=== PATIENT | female | born 1960 | race Two or more races ===

== ENCOUNTER 2017-10-22 16:06 | Outpatient (CLI) | END 2017-10-22 16:07 | disposition home or self-care (01) | LOC: NONPT 16:06 | PROVIDERS: ATTEND Internal Medicine Infectious Disease | DX: A41.2 Sepsis due to unspecified staphylococcus (principal); E11.9 Type 2 diabetes mellitus without complications | CPT/HCPCS: 80053; 85025; 85651; 86140 ==

== ENCOUNTER 2017-10-29 11:44 | Outpatient (CLI) | END 2017-10-29 11:45 | disposition home or self-care (01) | LOC: NONPT 11:44 | PROVIDERS: ATTEND Internal Medicine Infectious Disease | DX: L02.414 Cutaneous abscess of left upper limb (principal); L02.413 Cutaneous abscess of right upper limb; A49.02 Methicillin resistant Staphylococcus aureus infection, unspecified site; E11.9 Type 2 diabetes mellitus without complications | CPT/HCPCS: 80053; 85025; 85651; 86140 ==

== ENCOUNTER 2017-11-05 11:50 | Outpatient (CLI) | END 2017-11-05 11:51 | disposition home or self-care (01) | LOC: NONPT 11:50 | PROVIDERS: ATTEND Internal Medicine Infectious Disease | DX: L02.91 Cutaneous abscess, unspecified (principal); A49.01 Methicillin susceptible Staphylococcus aureus infection, unspecified site; E11.9 Type 2 diabetes mellitus without complications | CPT/HCPCS: 80053; 85025; 85651; 86140 ==

== ENCOUNTER 2017-11-12 11:15 | Outpatient (CLI) | END 2017-11-12 11:16 | disposition home or self-care (01) | LOC: NONPT 11:15 | PROVIDERS: ATTEND Internal Medicine Infectious Disease | DX: L02.91 Cutaneous abscess, unspecified (principal); A49.01 Methicillin susceptible Staphylococcus aureus infection, unspecified site; E11.9 Type 2 diabetes mellitus without complications | CPT/HCPCS: 80053; 85025; 85651; 86140 ==

== ENCOUNTER 2017-11-26 13:09 | Outpatient (CLI) | END 2017-11-26 13:10 | disposition home or self-care (01) | LOC: NONPT 13:09 | PROVIDERS: ATTEND Internal Medicine Infectious Disease | DX: L02.91 Cutaneous abscess, unspecified (principal); A49.01 Methicillin susceptible Staphylococcus aureus infection, unspecified site; E11.9 Type 2 diabetes mellitus without complications | CPT/HCPCS: 85651; 86140 ==

== ENCOUNTER 2017-12-03 13:06 | Outpatient (CLI) | END 2017-12-03 13:07 | disposition home or self-care (01) | LOC: NONPT 13:06 | PROVIDERS: ATTEND Internal Medicine Infectious Disease | DX: L02.413 Cutaneous abscess of right upper limb (principal); L02.414 Cutaneous abscess of left upper limb; B95.61 Methicillin susceptible Staphylococcus aureus infection as the cause of diseases classified elsewhere; E11.621 Type 2 diabetes mellitus with foot ulcer | CPT/HCPCS: 85651; 86140 ==

== ENCOUNTER 2017-12-10 11:48 | Outpatient (CLI) | END 2017-12-10 11:49 | disposition home or self-care (01) | LOC: NONPT 11:48 | PROVIDERS: ATTEND Internal Medicine Infectious Disease | DX: L97.519 Non-pressure chronic ulcer of other part of right foot with unspecified severity (principal); E11.621 Type 2 diabetes mellitus with foot ulcer | CPT/HCPCS: 85651; 86140 ==

== ENCOUNTER 2017-12-13 13:00 | Outpatient (RCR) ==
--- NOTE | 2017-11-29 08:25 | RS.OPPTEV2 ---
Date of Note: 11/27/17 Visit #: 1 Date of Evaluation: 11/27/17 Payer Source: Insurance Surgery Performed?: Yes (surgery to B shlds to "clean out infection") Date of Procedure: 10/04/17 Treatment Diagnosis: shoulder pain History of Condition/Mechanism of Injury:: pt became ill 09/24/17 with sepsis affecting B shlds and L eye. Prior Level of Function.....Patient was independent with: ADL's, Self Care, Caregiving, Ambulation/Mobility, Community Integration/Access Level of Function: pt has returned to work 1/2 days currently with lifting restriction Functional Limitations: Sleep, Reaching, Pushing, Pulling, Lifting, Carrying Current Subjective/complaints:: pt states her R UE has improved however her L UE remains restricted in ROM with pain. Treatment Side (optional): Left *Precautions: no lifting greater than 15lbs Medical History Medical History: Hypertension, Diabetes, Arthritis Medical History Comments:: neuropathy, gout Surgical History Comments:: R great toe partially amputated, BUE shld sx to "clean out infection" Smoking Status: Never smoker Hx Home Medications: victoza, jardiance, allopurinol, zyrtec, duloxetine, gabapentin, ibuprofen, cephalexin Patient's Goals: decrease pain and increase ROM in L shld Pain Assessment - Pain Description Pain Location: L shld Current Pain Intensity: 1-2/10 Functional Outcome Measure UE Functional Index: 54 (32%) - G Codes & Severity Modifier G Codes & Modifier: n/a Source of G Code score: n/a Observation - Observation Inspection: incisions B shld healed Posture: Forward Head, Rounded Shoulders Handedness: Right Gait - Gait Pattern General Gait Pattern Observation: Antalgic Gait Gait Comments: pt amb with antalgic gait due to wound on R foot wearing off loading shoe General Range of Motion: BLE WFL's. RUE WFL's Muscle Strength: BLE 5/5. RUE 4+/5 Shoulder ROM: Right WFL's Shoulder Muscle Strength: Right WFL's - Left Shoulder ROM Left Shoulder Flexion: 75 Left Shoulder Abduction: 68 Left Shoulder External Rotation: 56 Left Shoulder ROM Limitations: Soft Tissue Tightness, Muscle Weakness, Pain - Left Shoulder Strength Left Shoulder Flexion: 3- Fair- Left Shoulder Abduction: 3- Fair- Left Shoulder External Rotation: 3- Fair- - Special Tests Shoulder Speed's Sign Test: Positive Left Palpation Palpation Findings: Tenderness, Trigger Point, Muscle Guarding Comments:: pt with tenderness over biceps tendon, trigger points noted on L scapula medial border as well as trigger point in L upper trap. Sensation - Sensation Right Upper Extremity: Impaired Left Upper Extremity: Impaired Right Lower Extremity: Impaired Left Lower Extremity: Impaired Comments: pt reports n/t B hands and B feet Balance - Sitting Balance Static Sitting Balance: Normal Dynamic Sitting Balance: Normal - Standing Balance Static Standing Balance: Normal Dynamic Standing Balance: Normal - Treatment Modality: Ultrasound Parameters/Method Applied: pulsed x 7 mins Treatment Area: over biceps tendon insertion Patient Position: Sitting - Heat/Cryotherapy Treatment: Cryotherapy Interventions - Exercise/Activities/Manual Therapy Exercises/Activities: pt performed isometric L shld flex/ext, abd/add, wand horizontal abd/add, flex, scapular retraction, shld shrugs Manual Therapy: n/a HOME EXERCISE PROGRAM: pt given written HEP including: isometric flex/ext, abd/ add, scapular retraction, shld shrugs, wand with horizontal abd/add, flex - Charges Timed Code Treatment Minutes: 50 Total Treatment Time: 60 Procedures billed for this date of service:: eval low, ultrasound, cp EVALUATION COMPLEXITY LEVEL EVALUATION COMPLEXITY LEVEL: HISTORY: Medium (OA, DM, HTN, neuropathy, gout), EXAM OF BODY SYSTEMS: Medium (pain, ROM, strength, balance), CLINICAL PRESENTATION: Low (stable), CLINICAL DECISION MAKING: Medium Assessment Assessment: pt presents with decreased strength, ROM, pain, L shld s/p infection. pt with trigger points noted on scapula on medial border as well as L upper trap. 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 Goal to be met by: 01/08/18 Plan - Treatment to be Provided Procedures: Therapeutic Exercises, Therapeutic Activity, Neuromuscular Rehab, Manual Therapy, Massage, Patient Education Modalities: Ultrasound/Phonophoresis, Class IV Laser, Cryotherapy - Treatment Plan Frequency: 2-3x week Duration: 6 weeks ORDER # VISITS AND/OR THROUGH DATE: 01/08/18 - Treatment Code (1) Pain in joint, shoulder region Code(s): M25.519 - PAIN IN UNSPECIFIED SHOULDER Qualifiers: Laterality: left Qualified Code(s): M25.512 - Pain in left shoulder (2) Joint stiffness Code(s): M25.60 - STIFFNESS OF UNSPECIFIED JOINT, NOT ELSEWHERE CLASSIFIED (3) Muscle weakness Code(s): M62.81 - MUSCLE WEAKNESS (GENERALIZED)
--- NOTE | 2017-11-29 14:12 | RS.OPPTDN ---
Subjective Date of Note: 11/29/17 Visit #: 2 Date of Evaluation: 11/27/17 Payer Source: Insurance Treatment Diagnosis: shoulder pain Current Subjective/complaints:: Patient reports doing HEP,also felt less discomfort in the L shoulder after the last session. *Precautions: no lifting greater than 15lbs Pain Assessment - Pain Description Pain Location: L shoulder Pain Description: Dull Current Pain Intensity: 1-2 - Treatment Modality: Ultrasound Parameters/Method Applied: Pulsed mode x 10 mins,@1.5 w/cm2 to L shoulder. Patient Position: Supine - Heat/Cryotherapy Treatment: Cryotherapy (10 mins. after exercise and US) Interventions - Exercise/Activities/Manual Therapy Exercises/Activities: 20 mins. shoulder shrugs,circles,isometrics all directions.patent education for positioning and posture.HEP review. Total minutes of Exercise: 20 Manual Therapy: n/a Total minutes of Manual Therapy: 0 HOME EXERCISE PROGRAM: pt given written HEP including: isometric flex/ext, abd/ add, scapular retraction, shld shrugs, wand with horizontal abd/add, flex - Charges Timed Code Treatment Minutes: 30 Total Treatment Time: 40 Procedures billed for this date of service:: ex ,US,cp Assessment: Patient reports slight discomfort at end range with overhead flexion ,and end range of ER.She tolerates isometrics well without pain.She is very attentive and compliant to recomendations of the therapy staff. Patient Education: Body/Joint mechanics, Home Exercise Program, Activity Modification, Education of Plan of Care Patient demonstrates compliance with HEP?: Yes Short Term Goals Goal #1: pt rate pain < 3 with activity Goal to be met by: 12/18/17 Progress towards Goal:: Progressing Goal #2: Improve L shld ROM flex 85, abd 78, ER 60 Goal to be met by: 12/18/17 Progress towards Goal:: Progressing Goal #3: pt independent with initial HEP Goal to be met by: 12/18/17 Progress towards Goal:: Progressing Shelter Goals Goal #1: pt rate pain < 2 with activity Goal to be met by: 01/08/18 Goal #2: Improve ROM L shld flex 100, abd 95 Goal to be met by: 01/08/18 Goal #3: Improve strength L UE 4- to 4/5 Goal to be met by: 05/22/18 Goal #4: 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
--- NOTE | 2017-12-04 14:44 | RS.OPPTDN ---
Subjective Date of Note: 12/04/17 Visit #: 3 Date of Evaluation: 11/27/17 Payer Source: Insurance Treatment Diagnosis: shoulder pain Current Subjective/complaints:: Patient feels the therapy is helping,as she can move the L UE more with less pain ,feeling it is also getting stronger. *Precautions: no lifting greater than 15lbs - Treatment Modality: Ultrasound Parameters/Method Applied: Pulsed ( 50 % ) to L shoulder x 10 mins. @ 1.5 w/ cm2. Patient Position: Supine - Heat/Cryotherapy Treatment: Cryotherapy (10 mins.after US) Interventions - Exercise/Activities/Manual Therapy Exercises/Activities: 30 mins. total of supine AROM ,resistive exercises with yellow theraband,5# wand exercises.Exercise motions include ER,IR ,chest press, overhead flexion,shoulder abduction ,biceps curls and elbow extension. Total minutes of Exercise: 30 Manual Therapy: n/a Total minutes of Manual Therapy: 0 HOME EXERCISE PROGRAM: pt given written HEP including: isometric flex/ext, abd/ add, scapular retraction, shld shrugs, wand with horizontal abd/add, flex. Yellow theraband given today for HEP. - Charges Timed Code Treatment Minutes: 40 Total Treatment Time: 50 Procedures billed for this date of service:: ex 2,US,cp Assessment: Patient tolerates low resistance exercises today safely,with fatigue only,no sharp pain reported.She is tender to palpate the biceps tendon area today.She has good understanding of energy conservation and joint protection for ADL's. Patient Education: Education of diagnosis, Body/Joint mechanics, Home Exercise Program, Home Safety, Activity Modification, Education of Plan of Care Patient demonstrates compliance with HEP?: Yes Short Term Goals Goal #1: pt rate pain < 3 with activity Goal to be met by: 12/18/17 Progress towards Goal:: Progressing Goal #2: Improve L shld ROM flex 85, abd 78, ER 60 Goal to be met by: 12/18/17 Progress towards Goal:: Progressing Goal #3: pt independent with initial HEP Goal to be met by: 12/18/17 Progress towards Goal:: Progressing Rabbit Fancier Goals Goal #1: pt rate pain < 2 with activity Goal to be met by: 01/08/18 Goal #2: Improve ROM L shld flex 100, abd 95 Goal to be met by: 01/08/18 Goal #3: Improve strength L UE 4- to 4/5 Goal to be met by: 01/08/18 Goal #4: 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
--- NOTE | 2017-12-06 14:05 | RS.OPPTDN ---
Subjective Date of Note: 12/06/17 Visit #: 4 Date of Evaluation: 11/27/17 Payer Source: Insurance Treatment Diagnosis: shoulder pain Current Subjective/complaints:: Patient reports the L shoulder is feeling slightly stronger,and more flexible with overhead motion.She still fatigues easily with prolonged overhead tasks. *Precautions: no lifting greater than 15lbs - Treatment Modality: Ultrasound Parameters/Method Applied: 10 mins. @ 1.5 w/cm2 ,pulsed mode to L anterior portion of shoulder and biceps tendon area. Interventions - Exercise/Activities/Manual Therapy Exercises/Activities: 35 mins. total of supine AROM ,resistive exercises with yellow theraband,5# wand exercises.Exercise motions include ER,IR ,chest press, overhead flexion,shoulder abduction ,biceps curls and elbow extension. Total minutes of Exercise: 35 Manual Therapy: n/a Total minutes of Manual Therapy: 0 HOME EXERCISE PROGRAM: pt given written HEP including: isometric flex/ext, abd/ add, scapular retraction, shld shrugs, wand with horizontal abd/add, flex. Yellow theraband given today for HEP. - Charges Timed Code Treatment Minutes: 35 Total Treatment Time: 45 Procedures billed for this date of service:: ex ,US Assessment: Patient progressing ,with less pain in the L shoulder ,increased strength and motion.She fatigues easily with eccentric control.She is motivated to improve. Patient Education: Education of diagnosis, Body/Joint mechanics, Home Exercise Program, Home Safety, Activity Modification, Education of Plan of Care Patient demonstrates compliance with HEP?: Yes Short Term Goals Goal #1: pt rate pain < 3 with activity Goal to be met by: 12/18/17 Progress towards Goal:: Progressing Goal #2: Improve L shld ROM flex 85, abd 78, ER 60 Goal to be met by: 12/18/17 Progress towards Goal:: Progressing Goal #3: pt independent with initial HEP Goal to be met by: 12/18/17 Progress towards Goal:: Progressing Boatbuilder Supervisor Goals Goal #1: pt rate pain < 2 with activity Goal to be met by: 01/08/18 Goal #2: Improve ROM L shld flex 100, abd 95 Goal to be met by: 01/08/18 Goal #3: Improve strength L UE 4- to 4/5 Goal to be met by: 05/22/18 Goal #4: 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
--- NOTE | 2017-12-11 15:18 | RS.OPPTDN ---
Subjective Date of Note: 12/11/17 Visit #: 5 Date of Evaluation: 11/27/17 Payer Source: Insurance Treatment Diagnosis: shoulder pain Current Subjective/complaints:: Patient reports muscle soreness after last session ,but no pain or dsicomfort over the weekend.She reports feeling strongerf nit the L UE,able to hold the arm up over head a little longer,such as when washing her hair. *Precautions: no lifting greater than 15lbs - Treatment Modality: Ultrasound Parameters/Method Applied: 10 mins. @ 1.5 w/cm2 ,continuous mode to L anterior shoulder/biceps tendon region. Patient Position: Supine - Heat/Cryotherapy Treatment: Cryotherapy (15 mins. after exercises and US) Interventions - Exercise/Activities/Manual Therapy Exercises/Activities: 35 mins. total of seated AROM ,wand exercises with 3 # .Exercise motions include ER,IR ,chest press,overhead flexion,shoulder abduction ,biceps curls and elbow extension. @ 3 dumbbell exercise of 3/10 for scaption.HEP review ,including scapular pro/retraction /postural awareness. Total minutes of Exercise: 35 Manual Therapy: n/a Total minutes of Manual Therapy: 0 HOME EXERCISE PROGRAM: pt given written HEP including: isometric flex/ext, abd/ add, scapular retraction, shld shrugs, wand with horizontal abd/add, flex. Yellow theraband given today for HEP. - Charges Timed Code Treatment Minutes: 45 Total Treatment Time: 55 Procedures billed for this date of service:: ex 2,US,cp Assessment: Patient continues to have increased strength in the L UE with less pain present upon AROM.Her eccentric control is also better.She reports less difficulty with some of her ADL's. Patient Education: Body/Joint mechanics, Home Exercise Program, Home Safety, Activity Modification, Education of Plan of Care Patient demonstrates compliance with HEP?: Yes Short Term Goals Goal #1: pt rate pain < 3 with activity Goal to be met by: 12/18/17 Progress towards Goal:: Partially Met Goal #2: Improve L shld ROM flex 85, abd 78, ER 60 Goal to be met by: 12/18/17 Progress towards Goal:: Progressing Goal #3: pt independent with initial HEP Goal to be met by: 12/18/17 Progress towards Goal:: Progressing General Education Instructor Goals Goal #1: pt rate pain < 2 with activity Goal to be met by: 01/08/18 Progress towards goal: Progressing Goal #2: Improve ROM L shld flex 100, abd 95 Goal to be met by: 01/08/18 Progress towards goal: Progressing Goal #3: Improve strength L UE 4- to 4/5 Goal to be met by: 01/08/18 Progress towards goal: Progressing Goal #4: 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
--- NOTE | 2017-12-13 14:24 | RS.OPPTDN ---
Subjective Date of Note: 12/13/17 Visit #: 6 Date of Evaluation: 11/27/17 Payer Source: Insurance Treatment Diagnosis: shoulder pain Current Subjective/complaints:: No c/o,feels the L shoulder continues to improve ,is doing her HEP. *Precautions: no lifting greater than 15lbs Pain Assessment - Pain Description Pain Location: L shoulder Pain Description: muscle soreness - Treatment Modality: Ultrasound Parameters/Method Applied: 10 mins. @ 1.5 w/cm2 to L shoulder,continuous mode. Patient Position: Supine - Heat/Cryotherapy Treatment: Cryotherapy (15 mins. after exercises and US) Interventions - Exercise/Activities/Manual Therapy Exercises/Activities: 40 mins. total of seated resistive exercises on multi gym for scapular pro/retraction with 10 # .Standing AROM with 10# on multi-gym for IR for L shoulder.Red theraband exercises for shoulder ER.Al exercises done 3/ 15 reps.Supine scaption at end of exercise session. Total minutes of Exercise: 40 Manual Therapy: n/a Total minutes of Manual Therapy: 0 HOME EXERCISE PROGRAM: pt given written HEP including: isometric flex/ext, abd/ add, scapular retraction, shld shrugs, wand with horizontal abd/add, flex. Yellow theraband given today for HEP. - Charges Timed Code Treatment Minutes: 50 Total Treatment Time: 60 Procedures billed for this date of service:: ex 2,US,cp Assessment: Guera continues to have increased L shoulder strength with less pain.She has the mst difficulty with Er and abduction when resistance is used.She only reports fatigue ,no sharp pain reported. Patient Education: Education of diagnosis, Body/Joint mechanics, Home Exercise Program, Home Safety, Activity Modification, Education of Plan of Care Patient demonstrates compliance with HEP?: Yes Short Term Goals Goal #1: pt rate pain < 3 with activity Goal to be met by: 12/18/17 Progress towards Goal:: Partially Met Goal #2: Improve L shld ROM flex 85, abd 78, ER 60 Goal to be met by: 12/18/17 Progress towards Goal:: Progressing Goal #3: pt independent with initial HEP Goal to be met by: 12/18/17 Progress towards Goal:: Partially Met Block Cableman Goals Goal #1: pt rate pain < 2 with activity Goal to be met by: 01/08/18 Progress towards goal: Progressing Goal #2: Improve ROM L shld flex 100, abd 95 Goal to be met by: 01/08/18 Progress towards goal: Progressing Goal #3: Improve strength L UE 4- to 4/5 Goal to be met by: 01/08/18 Progress towards goal: Progressing Goal #4: 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
== END 2017-12-17 23:59 ==
PROVIDERS: ATTEND Family Medicine
DX: M25.512 Pain in left shoulder (principal); M62.81 Muscle weakness (generalized); M25.612 Stiffness of left shoulder, not elsewhere classified; Z98.890 Other specified postprocedural states

== ENCOUNTER 2017-12-17 11:52 | Outpatient (CLI) | END 2017-12-17 11:53 | disposition home or self-care (01) | LOC: NONPT 11:52 | PROVIDERS: ATTEND Internal Medicine Infectious Disease | DX: L97.519 Non-pressure chronic ulcer of other part of right foot with unspecified severity (principal); E11.621 Type 2 diabetes mellitus with foot ulcer | CPT/HCPCS: 85651; 86140 ==

== ENCOUNTER 2017-12-24 09:36 | Outpatient (CLI) | END 2017-12-24 09:37 | disposition home or self-care (01) | LOC: NONPT 09:36 | PROVIDERS: ATTEND Internal Medicine Infectious Disease | DX: L97.519 Non-pressure chronic ulcer of other part of right foot with unspecified severity (principal); E11.621 Type 2 diabetes mellitus with foot ulcer | CPT/HCPCS: 85651; 86140 ==

== ENCOUNTER 2017-12-31 10:08 | Outpatient (CLI) | END 2017-12-31 10:09 | disposition home or self-care (01) | LOC: NONPT 10:08 | PROVIDERS: ATTEND Internal Medicine Infectious Disease | DX: L97.519 Non-pressure chronic ulcer of other part of right foot with unspecified severity (principal); E11.621 Type 2 diabetes mellitus with foot ulcer | CPT/HCPCS: 85651; 86140 ==

== ENCOUNTER 2018-01-03 13:00 | Outpatient (RCR) ==
--- NOTE | 2017-12-18 14:27 | RS.OPPTDN ---
Subjective Date of Note: 12/18/17 Visit #: 7 Date of Evaluation: 11/27/17 Payer Source: Insurance Treatment Diagnosis: shoulder pain Current Subjective/complaints:: Reports stiffness ,but no pain in the L shoulder.She feels the L shoulder is getting stronger. *Precautions: no lifting greater than 15lbs Pain Assessment - Pain Description Pain Location: L shoulder Pain Description: stiffness - Heat/Cryotherapy Treatment: Cryotherapy (15 mins. after exercises) Interventions - Exercise/Activities/Manual Therapy Exercises/Activities: 40 mins. total of seated resistive exercises on multi gym for scapular pro/retraction with 120 # .Standing AROM with 10# on multi-gym for IR for L shoulder.Red theraband exercises for shoulder ER.All exercises done 3/ 10 - 15 reps.Standing using small therapy ball in L hand on wall for motion in all directions.Doorway stretches for anterior chest area ( pectorals). Total minutes of Exercise: 40 Manual Therapy: n/a Total minutes of Manual Therapy: 0 HOME EXERCISE PROGRAM: pt given written HEP including: isometric flex/ext, abd/ add, scapular retraction, shld shrugs, wand with horizontal abd/add, flex. Yellow theraband given today for HEP. - Charges Timed Code Treatment Minutes: 40 Total Treatment Time: 55 Procedures billed for this date of service:: ex 3,cp Assessment: Patient progressing well,improved ability to maintain overhead position of the L UE .She has no sharp pain with exercises today.She is compliant to all recommendations fo the therapy staff. Patient Education: Education of diagnosis, Body/Joint mechanics, Home Exercise Program, Home Safety, Activity Modification, Education of Plan of Care Patient demonstrates compliance with HEP?: Yes Short Term Goals Goal #1: pt rate pain < 3 with activity Goal to be met by: 12/18/17 Progress towards Goal:: Partially Met Goal #2: Improve L shld ROM flex 85, abd 78, ER 60 Goal to be met by: 12/18/17 Progress towards Goal:: Progressing Goal #3: pt independent with initial HEP Goal to be met by: 12/18/17 Progress towards Goal:: Partially Met [facility] Goals Goal #1: pt rate pain < 2 with activity Goal to be met by: 01/08/18 Progress towards goal: Progressing Goal #2: Improve ROM L shld flex 100, abd 95 Goal to be met by: 01/08/18 Progress towards goal: Progressing Goal #3: Improve strength L UE 4- to 4/5 Goal to be met by: 01/08/18 Progress towards goal: Progressing Goal #4: 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
--- NOTE | 2017-12-20 13:55 | RS.OPPTDN ---
Subjective Date of Note: 12/20/17 Visit #: 8 Date of Evaluation: 11/27/17 Payer Source: Insurance Treatment Diagnosis: shoulder pain Current Subjective/complaints:: pt states her shoulder feels a little more stiff today, thinks it may be because of the weather. *Precautions: no lifting greater than 15lbs Pain Assessment - Pain Description Pain Location: L shld Pain Description: Aching Pain Description: 1 - Heat/Cryotherapy Treatment: Cryotherapy Comments:: L shld after exercise x 10 mins Interventions - Exercise/Activities/Manual Therapy Exercises/Activities: 42 mins of ex. pt performed seated scapular protraction/ retraction on multigym with 10# weight, IR with 10#, ER with red theraband x 3 sets of 10. pt performed wall slides, arc, as well as door stretches. Manual Therapy: n/a HOME EXERCISE PROGRAM: pt given written HEP including: isometric flex/ext, abd/ add, scapular retraction, shld shrugs, wand with horizontal abd/add, flex. Yellow theraband given today for HEP. - Charges Timed Code Treatment Minutes: 45 Total Treatment Time: 55 Procedures billed for this date of service:: ex 3, cold pack Assessment: pt is progressing with increased strength and ROM L shld. pt tolerating increased ex. Patient Education: Home Exercise Program, Education of Plan of Care Patient demonstrates compliance with HEP?: Yes Short Term Goals Goal #1: pt rate pain < 3 with activity Goal to be met by: 12/18/17 Progress towards Goal:: Met Goal #2: Improve L shld ROM flex 85, abd 78, ER 60 Goal to be met by: 12/18/17 Progress towards Goal:: Progressing Goal #3: pt independent with initial HEP Goal to be met by: 12/18/17 Progress towards Goal:: Met [facility] Goals Goal #1: pt rate pain < 2 with activity Goal to be met by: 01/08/18 Progress towards goal: Progressing Goal #2: Improve ROM L shld flex 100, abd 95 Goal to be met by: 01/08/18 Progress towards goal: Progressing Goal #3: Improve strength L UE 4- to 4/5 Goal to be met by: 01/08/18 Progress towards goal: Progressing Goal #4: 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
--- NOTE | 2017-12-25 14:29 | RS.OPPTDN ---
Subjective Date of Note: 12/25/17 Visit #: 9 Date of Evaluation: 11/27/17 Payer Source: Insurance Treatment Diagnosis: shoulder pain Current Subjective/complaints:: Patient reports no pain today ,but the arm feels heavy as the day progresses.She does report she feels stronger doing overhead activities,can hold the arm up for a longer time. *Precautions: no lifting greater than 15lbs Pain Assessment - Pain Description Current Pain Intensity: 0 - Heat/Cryotherapy Treatment: Cryotherapy (15 mins.after exercises) Interventions - Exercise/Activities/Manual Therapy Exercises/Activities: 45 mins of ex. pt performed standing scapular protraction/ retraction on multigym with 20# weight, IR with 10#, ER with red theraband x 3 sets of 10. pt performed 2# dumbbell AROM ,biceps/triceps strengthenng.Seated AROM is 140 flexion ,113 abduction ,59 with arm at side ,80 degrees with L arm abducted approx. 75 degrees. Total minutes of Exercise: 45 Manual Therapy: n/a Total minutes of Manual Therapy: 0 HOME EXERCISE PROGRAM: pt given written HEP including: isometric flex/ext, abd/ add, scapular retraction, shld shrugs, wand with horizontal abd/add, flex. Yellow theraband given today for HEP. - Charges Timed Code Treatment Minutes: 45 Total Treatment Time: 60 Procedures billed for this date of service:: ex 3,cp Short Term Goals Goal #1: pt rate pain < 3 with activity Goal to be met by: 12/18/17 Progress towards Goal:: Met Goal #2: Improve L shld ROM flex 85, abd 78, ER 60 Goal to be met by: 12/18/17 (er varies ,dependent upon positioning fo the L UE.) Progress towards Goal:: Partially Met Goal #3: pt independent with initial HEP Goal to be met by: 12/18/17 Progress towards Goal:: Met Longterm Goals Goal #1: pt rate pain < 2 with activity Goal to be met by: 01/08/18 Progress towards goal: Met Goal #2: Improve ROM L shld flex 100, abd 95 Goal to be met by: 01/08/18 Progress towards goal: Met Goal #3: Improve strength L UE 4- to 4/5 Goal to be met by: 01/08/18 Progress towards goal: Progressing Goal #4: 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
--- NOTE | 2017-12-27 14:34 | RS.OPPTDN ---
Subjective Date of Note: 12/27/17 Visit #: 10 Date of Evaluation: 11/27/17 Payer Source: Insurance Treatment Diagnosis: shoulder pain Current Subjective/complaints:: Patient reports the L shoulder was sore after last session ,but no sharp pain present.She also reports feeling stronger. *Precautions: no lifting greater than 15lbs - Heat/Cryotherapy Treatment: Cryotherapy (15 mins. after exercises) Interventions - Exercise/Activities/Manual Therapy Exercises/Activities: 40 mins of ex. using 10 to 20 # resistance on multi gym for all directions ,except no resistance for ER of the L shoulder.Shoulder arc exercises in standing and seated . Total minutes of Exercise: 40 Manual Therapy: n/a Total minutes of Manual Therapy: 0 HOME EXERCISE PROGRAM: pt given written HEP including: isometric flex/ext, abd/ add, scapular retraction, shld shrugs, wand with horizontal abd/add, flex. Yellow theraband given today for HEP. - Charges Timed Code Treatment Minutes: 40 Total Treatment Time: 55 Procedures billed for this date of service:: ex 3,cp Assessment: Progressing well, less intensity of soreness or pain .Her active motion is improved ,making her daily tasks less difficult.She is compliant to HEP. Patient Education: Home Exercise Program, Education of Plan of Care Patient demonstrates compliance with HEP?: Yes Short Term Goals Goal #1: pt rate pain < 3 with activity Goal to be met by: 12/18/17 Progress towards Goal:: Met Goal #2: Improve L shld ROM flex 85, abd 78, ER 60 Goal to be met by: 12/18/17 (er varies ,dependent upon positioning fo the L UE.) Progress towards Goal:: Partially Met Goal #3: pt independent with initial HEP Goal to be met by: 12/18/17 Progress towards Goal:: Met Access Representative Goals Goal #1: pt rate pain < 2 with activity Goal to be met by: 01/08/18 Progress towards goal: Met Goal #2: Improve ROM L shld flex 100, abd 95 Goal to be met by: 01/08/18 Progress towards goal: Met Goal #3: Improve strength L UE 4- to 4/5 Goal to be met by: 01/08/18 Progress towards goal: Progressing Goal #4: 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
--- NOTE | 2018-01-01 14:15 | RS.OPPTDN ---
Subjective Date of Note: 01/01/18 Visit #: 11 Date of Evaluation: 11/27/17 Payer Source: Insurance Treatment Diagnosis: shoulder pain Current Subjective/complaints:: no c/o.Pleased with her progress.much less difficult doing overhead activities,such as washing her hair. Interventions - Exercise/Activities/Manual Therapy Exercises/Activities: 45 mins of ex. 3/20 reps.using 10 to 20 # resistance on multi gym for all directions ,except no resistance for ER of the L shoulder.Isometrics all directions x 10 reps. eachPassive stretches after resistive exercises today. Total minutes of Exercise: 45 Manual Therapy: n/a Total minutes of Manual Therapy: 0 HOME EXERCISE PROGRAM: pt given written HEP including: isometric flex/ext, abd/ add, scapular retraction, shld shrugs, wand with horizontal abd/add, flex. Yellow theraband given today for HEP. - Charges Timed Code Treatment Minutes: 45 Total Treatment Time: 45 Procedures billed for this date of service:: ex 3 Assessment: Patient is progressing very well,has increased strength and AROM ni the shoulders.She has better postural awareness , joint protection ,and energy conservation for use of the UE's.She is compliant to all recommendations of the therapy staff.We discussed the D/C plan for this week due to good progress. Patient Education: Education of diagnosis, Body/Joint mechanics, Home Exercise Program, Home Safety, Activity Modification, Education of Plan of Care Patient demonstrates compliance with HEP?: Yes Short Term Goals Goal #1: pt rate pain < 3 with activity Goal to be met by: 12/18/17 Progress towards Goal:: Met Goal #2: Improve L shld ROM flex 85, abd 78, ER 60 Goal to be met by: 12/18/17 (er varies ,dependent upon positioning fo the L UE.) Progress towards Goal:: Met Goal #3: pt independent with initial HEP Goal to be met by: 12/18/17 Progress towards Goal:: Met Senior Living Goals Goal #1: pt rate pain < 2 with activity Goal to be met by: 01/08/18 Progress towards goal: Met Goal #2: Improve ROM L shld flex 100, abd 95 Goal to be met by: 01/08/18 Progress towards goal: Met Goal #3: Improve strength L UE 4- to 4/5 Goal to be met by: 01/08/18 Progress towards goal: Progressing 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
--- NOTE | 2018-01-03 13:54 | RS.OPPTDC ---
Date of Discharge: 01/03/18 Date of Evaluation: 11/27/17 Number of Visits: 12 Treatment Diagnosis: shoulder pain Current Level of Function: 15 % deficit in L shoulder per UE functional scale today. Current Complaints/Gains: Pleased with her progress, agrees with D/C plan today. Pain Assessment - Pain Description Pain Description: Dull, Aching Current Pain Intensity: not rated Functional Outcome Measure UE Functional Index: 64 - G Codes & Severity Modifier G Codes & Modifier: NA Source of G Code score: NA Observation - Observation Posture: Normal Handedness: Right Gait - Gait Pattern General Gait Pattern Observation: No Deviations/Normal General Range of Motion: WNL Muscle Strength: 4= to 5-/5 Interventions - Exercise/Activities/Manual Therapy Exercises/Activities: 30 mins of ex. 3/20 reps.using 10 to 20 # resistance on multi gym for all directions ,green theraband resistance for ER of the L shoulder.Isometrics all directions x 10 reps. each.HEP review,body mechanics and joint protection education. Total minutes of Exercise: 30 Manual Therapy: n/a Total minutes of Manual Therapy: 0 HOME EXERCISE PROGRAM: pt given written HEP including: isometric flex/ext, abd/ add, scapular retraction, shld shrugs, wand with horizontal abd/add, flex. Yellow theraband given today for HEP. - Charges Timed Code Treatment Minutes: 30 Total Treatment Time: 35 Procedures billed for this date of service:: ex 2 Assessment Assessment: Progressed well ,met both the STG's and LTG's.She is aware of D/C plan today. 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
== END 2018-01-17 23:59 | disposition short-term general hospital (02) ==
PROVIDERS: ATTEND Family Medicine
DX: M25.512 Pain in left shoulder (principal); M25.60 Stiffness of unspecified joint, not elsewhere classified; M62.81 Muscle weakness (generalized)